=== PATIENT | female | born 1960 | race Caucasian/White ===

== ENCOUNTER 2019-10-13 11:36 | Emergency (ER) | payer OTHER ==
[2019-10-13] MEDS ORDERED: Lidocaine 1% 50 ML MDV INJECT ONE (12:25)
[2019-10-13] MEDS ORDERED: Diphtheria,Pertussis(Acell),Tetanus Vaccine 0.5 ML SDV IM ONE (12:44)
--- NOTE | 2019-10-13 12:47 | EDM.PDOC ---
ED HPI GENERAL MEDICAL PROBLEM - General Chief Complaint: General Stated Complaint: FISH HOOK RIGHT THUMB Time Seen by Provider: 10/13/19 12:15 Source of Information: Reports: Patient History Limitations: Reports: No Limitations - History of Present Illness INITIAL COMMENTS - FREE TEXT/NARRATIVE: This is a 59-year-old female presents with concerns of a fishhook injury to the right hand. She was fishing with her this morning when she hooked herself proximal to the right thumb at approximately 10:30 AM. Her tried for couple hours to get the fishhook removed, they are unable to advance the hook due to pain. - Related Data Allergies Allergy/AdvReac Type Severity Reaction Status Date / Time No Known Allergies Allergy Verified 10/13/19 12:06 Home Meds: Home Meds Levothyroxine 75 mcg PO ACBREAKFAST 10/13/19 [History] Past Medical History Endocrine/Metabolic History: Reports: Hypothyroidism Social & Family History - Tobacco Use Smoking Status *Q: Never Smoker - Caffeine Use Caffeine Use: Reports: Soda - Recreational Drug Use Recreational Drug Use: No ED ROS GENERAL - Review of Systems Review Of Systems: See Below Constitutional: Reports: No Symptoms HEENT: Reports: No Symptoms Respiratory: Reports: No Symptoms Cardiovascular: Reports: No Symptoms Endocrine: Reports: No Symptoms GI/Abdominal: Reports: No Symptoms : Reports: No Symptoms Musculoskeletal: Reports: No Symptoms Skin: Reports: Wound Neurological: Reports: No Symptoms Psychiatric: Reports: No Symptoms Hematologic/Lymphatic: Reports: No Symptoms Immunologic: Reports: No Symptoms ED EXAM, GENERAL - Physical Exam Exam: See Below Exam Limited By: No Limitations General Appearance: Alert, No Apparent Distress Ears: Normal External Exam Nose: Normal Inspection Throat/Mouth: Normal Inspection Head: Atraumatic, Normocephalic Neck: Normal Inspection Respiratory/Chest: No Respiratory Distress Cardiovascular: Regular Rate, Rhythm GI/Abdominal: No Distention Back Exam: Normal Inspection Extremities: Other (Primghar embedded in the interspace between the thumb and second digit of the right hand. Distally she is neurovascular intact.) Psychiatric: Normal Affect, Normal Mood Skin Exam: Warm, Dry ED GENERAL MEDICAL PROCEDURES - Additional/Other Procedure(s) Other (Free Text) Procedure(s): Procedure note: Primghar removal. The area was prepped with chlorhexidine. Local anesthesia was obtained using 1% lidocaine without epinephrine. Approximately 5 cc were administered. The fishhook was then advanced and the demetrice cut with a wire snipped. He was then easily able to back the fishhook out. The wound does not appear particularly dirty or at high risk for infection. Course - Vital Signs Last Recorded V/S: Last Vital Signs Temp 37.1 C 10/13/19 12:07 Pulse 63 10/13/19 12:07 Resp 16 10/13/19 12:07 BP 184/85 H 10/13/19 12:07 Pulse Ox 94 L 10/13/19 12:07 - Orders/Labs/Meds Orders: Active Orders 24 hr Category Date Time Status Vaccines to be Administered [RC] PER UNIT ROUTINE Care 10/13/19 12:44 Ordered Meds: Medications Discontinued Medications Generic Name Dose Route Start Last Admin Trade Name Freq PRN Reason Stop Dose Admin Diphtheria/Tetanus/Acell Pertussis 0.5 ml 10/13/19 12:44 Adacel IM 10/13/19 12:45 .ONCE ONE Lidocaine HCl 10 ml 10/13/19 12:25 Xylocaine 1% INJECT 10/13/19 12:26 ONETIME ONE - Re-Assessments/Exams Free Text/Narrative Re-Assessment/Exam: 59-year-old presents with concerns of a fishhook in the right hand. Removed as above. Tdap is been updated. Does not look high risk for infection so we will forego any prophylactic antibiotics. We discussed return precautions including signs of wound infection. Discharged. 10/13/19 12:51 Departure - Departure Time of Disposition: 12:45 Disposition: Home, Self-Care 01 Clinical Impression: Fish hook injury of hand Qualifiers: Encounter type: initial encounter Laterality: right Qualified Code(s): S69.91XA - Unspecified injury of right wrist, hand and finger(s), initial encounter - Discharge Information Referrals: PCP,None [Primary Care Provider] - Forms: ED Department Discharge Additional Instructions: Please monitor the fishhook site for signs of infection such as redness, discharge, or pain as discussed. Call a physician if these signs are present. Thank you for letting us care for you today. Sepsis Event Note (ED) - Evaluation Sepsis Screening Result: No Definite Risk - Focused Exam Vital Signs: Vital Signs Temp Pulse Resp BP Pulse Ox 10/13/19 12:07 37.1 C 63 16 184/85 H 94 L 10/13/19 12:05 37.1 C 63 16 184/85 H 94 L - My Orders Last 24 Hours: My Active Orders 10/13/19 12:44 Vaccines to be Administered [RC] PER UNIT ROUTINE - Assessment/Plan Last 24 Hours: My Active Orders 10/13/19 12:44 Vaccines to be Administered [RC] PER UNIT ROUTINE
== END 2019-10-13 13:02 | disposition home or self-care (01) ==
LOC: JP.ED 11:36
DX: S60.551A Superficial foreign body of right hand, initial encounter (principal); E03.9 Hypothyroidism, unspecified; Z23 Encounter for immunization; W45.8XXA Other foreign body or object entering through skin, initial encounter
CPT/HCPCS: 90471; 90715; 99283; J2001